=== PATIENT | male | born 1980 | race Caucasian/White ===

== ENCOUNTER 2017-04-18 10:23 | Emergency (ER) | payer SELFPAY ==
[2017-04-18] MEDS ORDERED: SULFAMETHOXAZOLE-TRIMETHOPRIM DS 800-160 MG TAB PO ONE (10:45)
[2017-04-18] MEDS ORDERED: LIDOCAINE HCL 2% 20 ML VIAL INFIL ONE (10:45)
--- NOTE | 2017-04-18 10:50 | PD ---
HPI Chief Complaint: Laceration/Skin Injury Time Seen by Provider: 10:44 Travel History International Travel<30 days: No Contact w/Intl Traveler<30days: No Traveled to known affect area: No History of Present Illness HPI 36-year-old male with history of IV drug use presents to the emergency room for evaluation of her right antecubital abscess that started last night. States when he woke up this morning had significantly grown in size. Patient is concerned he may have gotten a condom stuck under the skin. He has used IV drugs 14 times in the past couple days. He is currently homeless but a skilled nursing house that he was kicked out of offered to bring him to rehabilitation after he is finished with this visit. He denies fever, chills, nausea, vomiting. PFSH Social History Tobacco Use: Yes Allergies-Medications (Allergen,Severity, Reaction): Coded Allergies: Penicillins (Verified Allergy, Severe, 04/18/17) Review of Systems Except as stated in HPI: all other systems reviewed are Neg Physical Exam Narrative GENERAL: Well-nourished, well-developed male in no acute distress. Afebrile. Ambulatory. SKIN: Focused skin assessment warm/dry. There is an indurated area in the right antecubital space which measures about 2 cm in diameter. It is fluctuant but there is no pointing or drainage. There is a zone of inflammation around it but no lymphangitis. HEAD: Normocephalic. EYES: No scleral icterus. No injection or drainage. NECK: Supple, trachea midline. No JVD or lymphadenopathy. CARDIOVASCULAR: Regular rate and rhythm without murmurs, gallops, or rubs. RESPIRATORY: Breath sounds equal bilaterally. No accessory muscle use. MUSCULOSKELETAL: No cyanosis, or edema. Data Data Orders Orders Sulfamet-Trimeth Ds 800-160 Mg (Bactrim (04/18/17 10:45) Lidocaine 2% Inj (Xylocaine 2% Inj) (04/18/17 10:45) [facility] Medical Decision Making Medical Screen Exam Complete: Yes Emergency Medical Condition: Yes Medical Record Reviewed: Yes Differential Diagnosis Abscess, folliculitis, cellulitis Narrative Course 36-year-old male with history of IV drug use presents to the emergency room for evaluation of an antecubital abscess on his right arm that started last night. Patient is afebrile and well-appearing in the emergency room. There is a 2 cm abscess to the right antecubital space without significant surrounding erythema. No surrounding edema. No lymphangitis. Abscess was drained, see procedure note for details. Given first dose of Bactrim in ED. Patient discharged with prescription for Bactrim and told to follow up with a primary care physician or return for worsening symptoms. Procedures Procedure Narrative INCISION AND DRAINAGE OF ABSCESS: The area was prepped and was sterilely draped. A subcutaneous wheal of 2% lidocaine with a total number 1 mL was used to anesthetize the area properly. A number 11 scalpel was used to make a 0.5 cm incision across the area of the abscess. The abscess was drained, complex loculations were broken down, and irrigated with normal saline. Sterile dressing applied. Diagnosis Primary Impression: Abscess of antecubital fossa Referrals: Primary Care Physician Additional Instructions: Rest and drink plenty of fluids. Take Bactrim as directed, until gone. Return to emergency room for worsening symptoms, as discussed. Med/Other Pt SpecificInfo: Prescription(s) given Disposition: 01 DISCHARGE HOME Condition: Stable Reina Fabian Apr 18, 2017 10:50
[2017-04-18] MEDS ORDERED: BACT800T5 PO (11:08)
== END 2017-04-18 11:13 | disposition home or self-care (01) ==
LOC: NEPK 10:23
DX: L02.413 Cutaneous abscess of right upper limb (principal); F19.10 Other psychoactive substance abuse, uncomplicated; Z59.0 Homelessness; Z88.0 Allergy status to penicillin; Z72.0 Tobacco use
CPT/HCPCS: 10060

== ENCOUNTER 2017-04-30 18:51 | Emergency (ER) | payer OTHER ==
[~2017-04-30] VITALS: Ht 182.9 cm; Wt 75.0 kg
[~2017-04-30 18:51] MED LIST: BACT800T5 PO
[2017-04-30 18:57] VITALS: BP 157/78; PULSE 79; RESP 18; TEMP 98.1; O2SAT 100
[2017-04-30] MEDS ORDERED: NALOXONE HCL 0.4 MG/ML AMP ONE (19:12)
[2017-04-30] MEDS ORDERED: LORazepam 2 MG/ML VIAL IV PUSH ONE (19:15)
[2017-04-30] MEDS ORDERED: NALOXONE HCL 0.4 MG/ML AMP IV PUSH ONE (19:15)
--- NOTE | 2017-04-30 19:16 | PD ---
Physical Exam Narrative General: The patient is a well-developed well-nourished male with placed in restraints prior to my arrival in the room. The patient with apparently agitated in somewhat combative, therefore the patient has placed in restraints for his in the staff safety.. Head and Neck exam: Head is normocephalic atraumatic. Eyes: EOMI, pupils are equal round and reactive to light. Nose: Midline septum with pink mucous membranes Mouth: Dentition unremarkable. Moist mucus membranes. Posterior oropharynx is not erythematous. No tonsillar hypertrophy. Uvula midline. Airway patent. Neck: No palpable lymphadenopathy. No nuchal rigidity. No thyromegaly. Cardiovascular: Regular rate and rhythm without murmurs, gallops, or rubs. Lungs: Clear to auscultation bilaterally. No wheezes, rhonchi, or rales. Abdomen: Soft, without tenderness to palpation in all 4 quadrants of the abdomen. No guarding, rebound, or rigidity. Normal bowel sounds are audible. No tenderness on palpation at McBurney's point Extremities: No clubbing or cyanosis. The patient has trace to 1+ edema of the right leg compared to the left. He reports that he has had edema in that leg since he was [facility]. He denies any injuries. 2+ pulses in all 4 extremities. The patient reports that he does have a history of IV drug use. Back: No spinous process tenderness to palpation. No costovertebral angle tenderness to palpation. Neurologic Exam: Cranial nerves 2-12 were intact on exam. Strength is 5/5 in all 4 extremities. No sensory deficits noted. Skin Exam: No rash noted. Intact skin that is warm and dry. Data Data Last Documented VS Vital Signs Date Time Temp Pulse Resp B/P (MAP) Pulse Ox O2 Delivery O2 Flow Rate FiO2 05/01/17 08:21 05/01/17 06:43 18 05/01/17 02:32 Room Air 04/30/17 22:35 98 98 04/30/17 19:21 98.0 15.00 Orders Orders Complete Blood Count With Diff (04/30/17 19:01) Comprehensive Metabolic Panel (04/30/17 19:01) Electrocardiogram (04/30/17 19:) Drug Screen, Random Urine (04/30/17 19:) Alcohol (Ethanol) (04/30/17 19:01) Salicylates (Aspirin) (04/30/17 19:01) Tylenol (Acetaminophen) (04/30/17 19:01) ^ Sitter (04/30/17 19:03) Lorazepam Inj (Ativan Inj) (04/30/17 19:15) Naloxone Inj (Narcan Inj) (04/30/17 19:12) Naloxone Inj (Narcan Inj) (04/30/17 19:15) Us Leg Venous Doppler (04/30/17 ) Clindamycin 600 Mg/Ns Premix (Cleocin 60 (04/30/17 22:00) Ed Discharge Order (05/01/17 07:50) Labs Laboratory Tests Test 04/30/17 19:15 04/30/17 20:10 04/30/17 21:50 White Blood Count 13.0 TH/MM3 Red Blood Count 4.25 MIL/MM3 Hemoglobin 13.8 GM/DL Hematocrit 39.0 % Mean Corpuscular Volume 91.8 FL Mean Corpuscular Hemoglobin 32.5 PG Mean Corpuscular Hemoglobin Concent 35.5 % Red Cell Distribution Width 14.4 % Platelet Count 291 TH/MM3 Mean Platelet Volume 7.6 FL Neutrophils (%) (Auto) 71.0 % Lymphocytes (%) (Auto) 14.4 % Monocytes (%) (Auto) 13.1 % Eosinophils (%) (Auto) 1.1 % Basophils (%) (Auto) 0.4 % Neutrophils # (Auto) 9.3 TH/MM3 Lymphocytes # (Auto) 1.9 TH/MM3 Monocytes # (Auto) 1.7 TH/MM3 Eosinophils # (Auto) 0.1 TH/MM3 Basophils # (Auto) 0.0 TH/MM3 CBC Comment AUTO DIFF Differential Total Cells Counted 100 Neutrophils % (Manual) 77 % Band Neutrophils % 5 % Lymphocytes % 9 % Monocytes % 8 % Eosinophils % 1 % Neutrophils # (Manual) 10.7 TH/MM3 Differential Comment FINAL DIFF MANUAL Toxic Granulation 1+ Toxic Vacuolation PRESENT Platelet Estimate NORMAL Platelet Morphology Comment NORMAL Red Cell Morphology Comment NORMAL Blood Urea Nitrogen 9 MG/DL Creatinine 0.75 MG/DL Random Glucose 81 MG/DL Total Protein 6.9 GM/DL Albumin 3.4 GM/DL Calcium Level 7.9 MG/DL Alkaline Phosphatase 84 U/L Aspartate Amino Transf (AST/SGOT) 139 U/L Alanine Aminotransferase (ALT/SGPT) 208 U/L Total Bilirubin 0.5 MG/DL Sodium Level 134 MEQ/L Potassium Level 3.3 MEQ/L Chloride Level 100 MEQ/L Carbon Dioxide Level 23.1 MEQ/L Anion Gap 11 MEQ/L Estimat Glomerular Filtration Rate 117 ML/MIN Salicylates Level 3.0 MG/DL Acetaminophen Level LESS THAN 2.0 MCG/ML Ethyl Alcohol Level 134 MG/DL Urine Opiates Screen NEG Urine Barbiturates Screen NEG Urine Amphetamines Screen POS Urine Benzodiazepines Screen NEG Urine Cocaine Screen POS Urine Cannabinoids Screen NEG MDM Medical Record Reviewed: Yes Supervised Visit with JIMBO: Yes Interpretation(s) Last Impressions Lower Extremity Ultrasound 04/30/17 0000 Signed Impressions: Service Date/Time: Sunday, April 30, 2017 19:21 - CONCLUSION: Normal examination. Barrera Millan Jr., MD Narrative Course I, Dr. Gavin, have reviewed the advance practice practitioner's documentation and am in agreement, met with the patient face to face, made the diagnosis, and the medical decision making was done by me. The patient was initially evaluated by Brandon. Please see their complete history and physical. *My assessment and Findings: The patient presents with a history of arriving in the emergency department under a Muro act due to acute agitation reported history of IV drug use During the course of the patient's emergency department visit, the patient's history, examination, and differential diagnosis were reviewed with the patient. The patient was placed on a surveillance system monitor with oximetry and frequent blood pressure monitoring. The patient had IV access obtained and blood work sent for analysis. Shortly after the patient arrived the patient became more somnolent he had O2 saturations began to drop. The patient with given Narcan 0.4 mg IV. After 0.4 of Narcan the patient became more awake in alert. The patient reports that he would told that he weighs using mildly prior to arrival. He freely admits that he uses IV drugs whenever he can. The patient' s Muro as reviewed. According to the record the patient has expressed suicidal ideations to others at the police talk to when they responded to the scene. The patients laboratory studies were reviewed and remarkable for CBC as remarkable for a white count of 13, hemoglobin 13.8, platelets 291 with 71 neutrophils. CMP as remarkable for sodium of 134, potassium 3.3, AST 139, ALT 208, alcohol level 134, urine drug screen positive for amphetamines, cocaine. Radiology studies were reviewed and remarkable for ultrasound of the patient's lower extremity shows no evidence of DVT. The patient has observed in the emergency department for any further decline in his mentation or oxygen saturation. The patient remained awake or easily arousable during the course of his observation for hours after his initial Narcan administration. The patient has been medically cleared for evaluation by the psychiatric screener and psychiatrist under a Muro act. Diagnosis Primary Impression: Polysubstance abuse Additional Impression: Suicidal ideation Scripts Sulfamethoxazole-Trimethoprim (Bactrim DS) 800-160 Mg Tab 1 TAB PO BID for Infection for 14 Days, #28 TAB 0 Refills Prov: Cheli Gavin MD 04/30/17 Cheli Gavin MD Apr 30, 2017 19:16
[2017-04-30 19:21] VITALS: BP 131/62; PULSE 75; RESP 20; TEMP 98; O2SAT 100
[2017-04-30 19:45] LABS: AUTOMATED NEUTROPHIL # 9.3 TH/MM3 (1.8-7.7); BASOPHIL % 0.4 % (0.0-2.0); EOSINOPHIL # 0.1 TH/MM3 (0-0.4); EOSINOPHIL % 1.1 % (0.0-4.0); HEMOGLOBIN 13.8 GM/DL (13.0-17.0); LYMPH % 14.4 % (9.0-44.0); LYMPHOCYTE # 1.9 TH/MM3 (1.0-4.8); MEAN CELL VOLUME 91.8 FL (80.0-100.0); MEAN CORPUSCULAR HEMOGLOBIN 32.5 PG (27.0-34.0); MEAN CORPUSCULAR HGB CONC 35.5 % (32.0-36.0); MEAN PLATELET VOLUME 7.6 FL (7.0-11.0); MONO % 13.1 % (0.0-8.0); MONOCYTE # 1.7 TH/MM3 (0-0.9); PLATELET COUNT 291 TH/MM3 (150-450); RED BLOOD COUNT 4.25 MIL/MM3 (4.50-5.90); RED CELL DISTRIBUTION WIDTH 14.4 % (11.6-17.2)
--- NOTE | 2017-04-30 19:56 | RADRPT ---
EXAM DATE/TIME: 04/30/2017 19:21 [place] COMPARISON: No previous studies available for comparison. INDICATIONS : Right leg swelling. MEDICAL HISTORY : None. SURGICAL HISTORY : None. ENCOUNTER: Initial ACUITY: 1 day PAIN SCORE: 2/10 LOCATION: Right leg. TECHNIQUE: Venous ultrasound of the leg was performed from the inguinal ligament to the proximal calf. Real-nabeel e, color Doppler and spectral tracing, compression and augmentation techniques were used. FINDINGS: There is normal compressibility of the deep venous system from the inguinal region to the proximal ca lf. No echogenic clot is seen in the lumen of the common femoral, femoral, popliteal, and posterior tibial veins. There is a normal response of the venous system to proximal and distal augmentation an d respiration. CONCLUSION: Normal examination. Barrera Millan Jr., MD on April 30, 2017 at 19:52 Board Certified Radiologist. This report was verified electronically.
[2017-04-30 20:17] LABS: BANDS 5 % (0-6); LYMPHOCYTES 9 % (9-44); MONOCYTES 8 % (0-8); NEUTROPHIL # MANUAL DIFF 10.7 TH/MM3 (1.8-7.7); POLYS (SEG NEUTROPHILS) 77 % (16-70)
[2017-04-30 20:19] LABS: TOXIC GRANULATION 1+ (NORMAL)
[2017-04-30 20:20] LABS: TOXIC VACUOLATION PRESENT (NONE SEEN)
--- NOTE | 2017-04-30 20:27 | PD ---
HPI Chief Complaint: Psychiatric Symptoms Time Seen by Provider: 19:01 Travel History International Travel<30 days: No Contact w/Intl Traveler<30days: No Traveled to known affect area: No History of Present Illness HPI 36-year-old male that presents to the ED for evaluation of Muro act an possible overdose. Patient has a chronic history of IV drug abuse in voices that he has been using IV drugs for some time. Per patient he possibly injected multiple he is not sure. His injected multiple drugs in the past. Per patient his homeless. He denies any injuries or attempt to kill himself. Per patient it was not purely recreational. Apparently when she wants found by ambulance as well as police he was not very agitated in thought to be a trip to himself so he was not very corrected for his safety brought here. Patient wants put on restraints but has been cooperative since. She does appear to get aggressive on occasion. On my initial evaluation he will somewhat somnolent but arousable. He answers some questions properly. She was not given any medications by ambulance. He has an allergy to penicillins. He denies any other medical issues at this time. Denies homicidal or suicidal ideation. [facility] Social History Alcohol Use: Yes Tobacco Use: Yes Substance Use: Yes (andrzej) Allergies-Medications (Allergen,Severity, Reaction): Coded Allergies: Penicillins (Verified Allergy, Severe, 04/18/17) Reported Meds & Prescriptions Reported Meds & Active Scripts Active Bactrim DS (Sulfamethoxazole-Trimethoprim) 800-160 Mg Tab 1 Tab PO BID 14 Days Review of Systems Except as stated in HPI: all other systems reviewed are Neg Physical Exam Narrative GENERAL: SKIN: Warm and dry. HEAD: Atraumatic. Normocephalic. EYES: Pupils equal and round 2 mms pinpoint. No scleral icterus. No injection or drainage. ENT: No nasal bleeding or discharge. Mucous membranes pink and moist. Tongue his midline. No uvula deviation. NECK: Trachea midline. No JVD. CARDIOVASCULAR: Regular rate and rhythm. No murmurs, S3, S4. RESPIRATORY: No accessory muscle use. Clear to auscultation. Breath sounds equal bilaterally. GASTROINTESTINAL: Abdomen soft, non-tender, nondistended. Hepatic and splenic margins not palpable. MUSCULOSKELETAL: Extremities without clubbing, cyanosis, or edema. No obvious deformities. Full range of motion of the upper lower extremities bilaterally. Patient does have erythema swelling noted on the right leg compared to the left. 2+ pulses bilaterally. Sensation intact bilaterally. NEUROLOGICAL: Awake and alert. No obvious cranial nerve deficits. Motor grossly within normal limits. Five out of 5 muscle strength in the arms and legs. Normal speech. PSYCHIATRIC: Appropriate mood and affect; insight and judgment normal. Data Data Last Documented VS Vital Signs Date Time Temp Pulse Resp B/P (MAP) Pulse Ox O2 Delivery O2 Flow Rate FiO2 04/30/17 19:21 98.0 75 20 131/62 (85) 100 Non-Rebreather 15.00 Orders Orders Complete Blood Count With Diff (04/30/17 19:01) Comprehensive Metabolic Panel (04/30/17 19:01) Electrocardiogram (04/30/17 19:01) Psych Screen (04/30/17 19:01) Drug Screen, Random Urine (04/30/17 19:01) Alcohol (Ethanol) (04/30/17 19:01) Salicylates (Aspirin) (04/30/17 19:01) Tylenol (Acetaminophen) (04/30/17 19:01) ^ Sitter (04/30/17 19:03) Lorazepam Inj (Ativan Inj) (04/30/17 19:15) Naloxone Inj (Narcan Inj) (04/30/17 19:12) Naloxone Inj (Narcan Inj) (04/30/17 19:15) Us Leg Venous Doppler (04/30/17 ) Clindamycin 600 Mg/Ns Premix (Cleocin 60 (04/30/17 22:00) Labs Laboratory Tests Test 04/30/17 19:15 04/30/17 20:10 White Blood Count 13.0 TH/MM3 Red Blood Count 4.25 MIL/MM3 Hemoglobin 13.8 GM/DL Hematocrit 39.0 % Mean Corpuscular Volume 91.8 FL Mean Corpuscular Hemoglobin 32.5 PG Mean Corpuscular Hemoglobin Concent 35.5 % Red Cell Distribution Width 14.4 % Platelet Count 291 TH/MM3 Mean Platelet Volume 7.6 FL Neutrophils (%) (Auto) 71.0 % Lymphocytes (%) (Auto) 14.4 % Monocytes (%) (Auto) 13.1 % Eosinophils (%) (Auto) 1.1 % Basophils (%) (Auto) 0.4 % Neutrophils # (Auto) 9.3 TH/MM3 Lymphocytes # (Auto) 1.9 TH/MM3 Monocytes # (Auto) 1.7 TH/MM3 Eosinophils # (Auto) 0.1 TH/MM3 Basophils # (Auto) 0.0 TH/MM3 CBC Comment AUTO DIFF Differential Total Cells Counted 100 Neutrophils % (Manual) 77 % Band Neutrophils % 5 % Lymphocytes % 9 % Monocytes % 8 % Eosinophils % 1 % Neutrophils # (Manual) 10.7 TH/MM3 Differential Comment FINAL DIFF MANUAL Toxic Granulation 1+ Toxic Vacuolation PRESENT Platelet Estimate NORMAL Platelet Morphology Comment NORMAL Red Cell Morphology Comment NORMAL Blood Urea Nitrogen 9 MG/DL Creatinine 0.75 MG/DL Random Glucose 81 MG/DL Total Protein 6.9 GM/DL Albumin 3.4 GM/DL Calcium Level 7.9 MG/DL Alkaline Phosphatase 84 U/L Aspartate Amino Transf (AST/SGOT) 139 U/L Alanine Aminotransferase (ALT/SGPT) 208 U/L Total Bilirubin 0.5 MG/DL Sodium Level 134 MEQ/L Potassium Level 3.3 MEQ/L Chloride Level 100 MEQ/L Carbon Dioxide Level 23.1 MEQ/L Anion Gap 11 MEQ/L Estimat Glomerular Filtration Rate 117 ML/MIN Salicylates Level 3.0 MG/DL Acetaminophen Level LESS THAN 2.0 MCG/ML Ethyl Alcohol Level 134 MG/DL MDM Medical Decision Making Medical Screen Exam Complete: Yes Emergency Medical Condition: Yes Medical Record Reviewed: Yes Interpretation(s) Last Impressions Lower Extremity Ultrasound 04/30/17 0000 Signed Impressions: Service Date/Time: Sunday, April 30, 2017 19:21 - CONCLUSION: Normal examination. Barrera Millan Jr., MD Differential Diagnosis Overdose versus suicidal attempt versus drug abuse versus depression versus polysubstance abuse versus cellulitis versus altered mental status versus acute intoxication Narrative Course 36-year-old male presents to the ED for evaluation of overdose on Muro act. Patient with peripheral examinable found to have signs in symptoms consistent with overdose on Muro act. Patient denies any suicidal ideation. Patient has been corrected for his own safety. Laps were ordered. My attending Dr. Garcia evaluated the patient as initially patient was a little somnolent nurse must concern S patient's O2 status he went down. Patient will plan on repairing given Narcan with good results. Patient became more awake in more cooperative. Patient still in restraints as he does appear to wean in an out of aggression. Patient wants found to have some what appears to be cellulitis to the right leg. Ultrasound as recommended by my attending. labs and imaging unremarcable other than for slight leukocytosis, Patient more alert but still intoxicated and somewhat aggressive. Will allow his intoxication to clear. patient was medically cleared. Ok to be seen by psych. Mental health screening was discussed with the patient. Patient was started on clindamycin and bactrim to cover for right leg cellulitis Diagnosis Primary Impression: Polysubstance abuse Additional Impression: Cellulitis Qualified Codes: L03.115 - Cellulitis of right lower limb Scripts Sulfamethoxazole-Trimethoprim (Bactrim DS) 800-160 Mg Tab 1 TAB PO BID for Infection for 14 Days, #28 TAB 0 Refills Prov: Cheli Gavin MD 04/30/17 Gaurang Kimball Apr 30, 2017 20:27
[2017-04-30] MEDS ORDERED: BACT800T5 PO (21:54)
[2017-04-30 21:55] LABS: ALBUMIN 3.4 GM/DL (3.4-5.0); ALKALINE PHOSPHATASE 84 U/L (45-117); ALT (GPT) 208 U/L (12-78); AST (GOT) 139 U/L (15-37); BICARBONATE 23.1 MEQ/L (21.0-32.0); BLOOD UREA NITROGEN 9 MG/DL (7-18); CALCIUM 7.9 MG/DL (8.5-10.1); CHLORIDE 100 MEQ/L (98-107); CREATININE 0.75 MG/DL (0.60-1.30); GLOMERULAR FILTRATION RATE 117 ML/MIN (>89); GLUCOSE,RANDOM 81 MG/DL (74-106); SODIUM (NA) 134 MEQ/L (136-145); TOTAL BILIRUBIN ADULT 0.5 MG/DL (0.2-1.0); TOTAL PROTEIN 6.9 GM/DL (6.4-8.2)
[2017-04-30 22:00] LABS: ACETAMINOPHEN LESS THAN 2.0 MCG/ML (10.0-30.0)
[2017-04-30] MEDS ORDERED: CLINDAMYCIN 600 MG/NS PREMIX 50 ML IV ONE (22:00)
[2017-04-30 22:35] VITALS: BP 125/67; PULSE 98; RESP 20; O2SAT 98
--- NOTE | 2017-04-30 23:26 | PD ---
History of Present Illness Chief Complaint: Psychiatric Symptoms Time Seen by Provider: 10:50 Travel History International Travel<30 Days: No Contact w/Intl Traveler<30days: No Known affected area: No Legal Status Legal Status: Muro Act Muro Act Signed By: Aga Griffin History of Present Illness: History of Present Illness 36-year-old male with history of substance abuse that presents to the ED under a Muro act Muro act initiated by law enforcement for possible overdose. The Muro act report states deputy Ray determined there was substantial likelihood that without proper care treatment Eugenia is likely to cost seriously body harm to himself and other. Deputies were informed Carole stated he did not want to live anymore. Deputies were advised Carole was found passed out from drinking in the middle of the road. ED documentation is reviewed. " The patient reported that he has a history of IV drug abuse and that he possibly injected multiple substances. Per patient he is homeless. He denies any injuries or attempt to kill himself. Denies homicidal or suicidal ideation." Electronic medical record is reviewed. No previous contact with [facility] psychiatry. The patient is seen in main ED. He is asleep but is arousable. He answers questions appropriately and provides information. He is alert, oriented. His speech is of low tone but it's clear and logical. He denies that the overdose was with intent to kill himself. He admits to use of intravenous drugs including heroin, cocaine, and Andrzej. There is no evidence of any psychosis, josiane or hypomania. He denies symptoms of depression. Patient tells me that he has had a recent relapse and has begun to use alcohol as well as other substances. Psychiatric History Psychiatric History Hx Psychiatric Treatment: Denies any current treatment. Does report he received psychiatric treatment while in assisted. Diagnosis is unknown History of Inpatient Treatment: No Guns or firearms in home: No Social History Patient lives with his mother. Works as a day sanitation laborer in construction. Hx Alcohol Use: Yes Hx Tobacco Use: Yes Hx Substance Use: Yes (andrzej) Substance Use Type: Alcohol, Amphetamines-Stimulants, Heroin, Cocaine, Synth Opiates-Pain Pills Hx of Substance Use Treatment: Yes (as a juvenile) Family Psychiatric History None reported Allergies-Medications (Allergen,Severity, Reaction): Coded Allergies: Penicillins (Verified Allergy, Severe, 04/18/17) Reported Meds & Prescriptions Reported Meds & Active Scripts Active Bactrim DS (Sulfamethoxazole-Trimethoprim) 800-160 Mg Tab 1 Tab PO BID 14 Days Review of Systems Except as stated in HPI: all other systems reviewed are Neg Mental Status Examination Appearance: Disheveled Consciousness: Alert Orientation: x4 Motor Activity: Normal gait Speech: Slow Language: Adequate Fund of Knowledge: Adequate Attention and Concentration: Adequate Memory: Unremarkable Mood: Appropriate Affect: Appropriate Thought Process & Associations: Intact, Logical, Goal directed Thought Content: Appropriate Hallucination Type: None Delusion Type: None Suicidal Ideation: No Suicidal Plan: No Suicidal Intention: No Homicidal Ideation: No Homicidal Plan: No Homicidal Intention: No Insight: Poor Judgment: Adequate MDM Medical Decision Making Medical Record Reviewed: Yes Assessment/Plan 36-year-old single male with history of substance abuse who presents under Muro act initiated by law enforcement after he was found passed out In the middle of the road. The Muro act alleges that the patient stated to the deputies that he did not want to live anymore. But the patient admits to having used several IV substances including heroin, cocaine, Andrzej as well as having had alcohol. He denies that this was an intentional overdose. He denies any suicidal or homicidal ideation. There is no psychosis and no josiane. The patient with no current or significant psychiatric treatment history. The patient does not meet criteria for Muro act at this time. The Muro act is lifted. He is psychiatrically clear for discharge but will be allowed to sleep it off until he is ready and safe for discharge. Orders Orders Complete Blood Count With Diff (04/30/17 19:) Comprehensive Metabolic Panel (04/30/17 19:) Electrocardiogram (04/30/17 19:) Psych Screen (04/30/17 19:) Drug Screen, Random Urine (04/30/17 19:) Alcohol (Ethanol) (04/30/17 19:) Salicylates (Aspirin) (04/30/17 19:) Tylenol (Acetaminophen) (04/30/17 19:01) ^ Sitter (04/30/17 19:03) Lorazepam Inj (Ativan Inj) (04/30/17 19:15) Naloxone Inj (Narcan Inj) (04/30/17 19:12) Naloxone Inj (Narcan Inj) (04/30/17 19:15) Us Leg Venous Doppler (04/30/17 ) Clindamycin 600 Mg/Ns Premix (Cleocin 60 (04/30/17 22:00) Results Vital Signs Date Time Temp Pulse Resp B/P (MAP) Pulse Ox O2 Delivery O2 Flow Rate FiO2 04/30/17 22:35 98 20 125/67 (86) 98 04/30/17 19:21 98.0 75 20 131/62 (85) 100 Non-Rebreather 15.00 04/30/17 18:57 98.1 79 18 157/78 (104) 100 Laboratory Tests Test 04/30/17 19:15 04/30/17 20:10 04/30/17 21:50 White Blood Count 13.0 Red Blood Count 4.25 Hemoglobin 13.8 Hematocrit 39.0 Mean Corpuscular Volume 91.8 Mean Corpuscular Hemoglobin 32.5 Mean Corpuscular Hemoglobin Concent 35.5 Red Cell Distribution Width 14.4 Platelet Count 291 Mean Platelet Volume 7.6 Neutrophils (%) (Auto) 71.0 Lymphocytes (%) (Auto) 14.4 Monocytes (%) (Auto) 13.1 Eosinophils (%) (Auto) 1.1 Basophils (%) (Auto) 0.4 Neutrophils # (Auto) 9.3 Lymphocytes # (Auto) 1.9 Monocytes # (Auto) 1.7 Eosinophils # (Auto) 0.1 Basophils # (Auto) 0.0 CBC Comment AUTO DIFF Differential Total Cells Counted 100 Neutrophils % (Manual) 77 Band Neutrophils % 5 Lymphocytes % 9 Monocytes % 8 Eosinophils % 1 Neutrophils # (Manual) 10.7 Differential Comment FINAL DIFF MANUAL Toxic Granulation 1+ Toxic Vacuolation PRESENT Platelet Estimate NORMAL Platelet Morphology Comment NORMAL Red Cell Morphology Comment NORMAL Blood Urea Nitrogen 9 Creatinine 0.75 Random Glucose 81 Total Protein 6.9 Albumin 3.4 Calcium Level 7.9 Alkaline Phosphatase 84 Aspartate Amino Transf (AST/SGOT) 139 Alanine Aminotransferase (ALT/SGPT) 208 Total Bilirubin 0.5 Sodium Level 134 Potassium Level 3.3 Chloride Level 100 Carbon Dioxide Level 23.1 Anion Gap 11 Estimat Glomerular Filtration Rate 117 Salicylates Level 3.0 Acetaminophen Level LESS THAN 2.0 Ethyl Alcohol Level 134 Urine Opiates Screen NEG Urine Barbiturates Screen NEG Urine Amphetamines Screen POS Urine Benzodiazepines Screen NEG Urine Cocaine Screen POS Urine Cannabinoids Screen NEG Diagnosis Primary Impression: Polysubstance abuse Additional Impression: Cellulitis Psychiatrically Cleared: Yes Prescriptions Sulfamethoxazole-Trimethoprim (Bactrim DS) 800-160 Mg Tab 1 TAB PO BID for Infection for 14 Days, #28 TAB 0 Refills Prov: Cheli Gavin MD 04/30/17 Disposition: 01 DISCHARGE HOME Condition: Stable Problem Qualifiers Additional Impression: Cellulitis Qualified Codes: L03.115 - Cellulitis of right lower limb Ciera Hester [facility] Apr 30, 2017 23:26
[2017-05-01 02:32] VITALS: RESP 18
[2017-05-01 06:43] VITALS: RESP 18
--- NOTE | 2017-05-01 07:50 | PD ---
Physical Exam Date Seen by Provider: May 01, 2017 Time Seen by Provider: 07:49 Narrative 36-year-old male previously medically cleared for psychiatric evaluation has been seen by psychiatric services and felt to be stable for psychiatric discharge. She remains medically stable for discharge at this time. Patient will follow-up as recommended by psychiatric services. Data Data Last Documented VS Vital Signs Date Time Temp Pulse Resp B/P (MAP) Pulse Ox O2 Delivery O2 Flow Rate FiO2 05/01/17 06:43 18 05/01/17 02:32 Room Air 04/30/17 22:35 98 98 04/30/17 19:21 98.0 15.00 Orders Orders Complete Blood Count With Diff (04/30/17 19:01) Comprehensive Metabolic Panel (04/30/17 19:01) Electrocardiogram (04/30/17 19:01) Drug Screen, Random Urine (04/30/17 19:01) Alcohol (Ethanol) (04/30/17 19:01) Salicylates (Aspirin) (04/30/17 19:01) Tylenol (Acetaminophen) (04/30/17 19:01) ^ Sitter (04/30/17 19:03) Lorazepam Inj (Ativan Inj) (04/30/17 19:15) Naloxone Inj (Narcan Inj) (04/30/17 19:12) Naloxone Inj (Narcan Inj) (04/30/17 19:15) Us Leg Venous Doppler (04/30/17 ) Clindamycin 600 Mg/Ns Premix (Cleocin 60 (04/30/17 22:00) Diet Regular Basic (05/01/17 Breakfast) Labs Laboratory Tests Test 04/30/17 19:15 04/30/17 20:10 04/30/17 21:50 White Blood Count 13.0 TH/MM3 Red Blood Count 4.25 MIL/MM3 Hemoglobin 13.8 GM/DL Hematocrit 39.0 % Mean Corpuscular Volume 91.8 FL Mean Corpuscular Hemoglobin 32.5 PG Mean Corpuscular Hemoglobin Concent 35.5 % Red Cell Distribution Width 14.4 % Platelet Count 291 TH/MM3 Mean Platelet Volume 7.6 FL Neutrophils (%) (Auto) 71.0 % Lymphocytes (%) (Auto) 14.4 % Monocytes (%) (Auto) 13.1 % Eosinophils (%) (Auto) 1.1 % Basophils (%) (Auto) 0.4 % Neutrophils # (Auto) 9.3 TH/MM3 Lymphocytes # (Auto) 1.9 TH/MM3 Monocytes # (Auto) 1.7 TH/MM3 Eosinophils # (Auto) 0.1 TH/MM3 Basophils # (Auto) 0.0 TH/MM3 CBC Comment AUTO DIFF Differential Total Cells Counted 100 Neutrophils % (Manual) 77 % Band Neutrophils % 5 % Lymphocytes % 9 % Monocytes % 8 % Eosinophils % 1 % Neutrophils # (Manual) 10.7 TH/MM3 Differential Comment FINAL DIFF MANUAL Toxic Granulation 1+ Toxic Vacuolation PRESENT Platelet Estimate NORMAL Platelet Morphology Comment NORMAL Red Cell Morphology Comment NORMAL Blood Urea Nitrogen 9 MG/DL Creatinine 0.75 MG/DL Random Glucose 81 MG/DL Total Protein 6.9 GM/DL Albumin 3.4 GM/DL Calcium Level 7.9 MG/DL Alkaline Phosphatase 84 U/L Aspartate Amino Transf (AST/SGOT) 139 U/L Alanine Aminotransferase (ALT/SGPT) 208 U/L Total Bilirubin 0.5 MG/DL Sodium Level 134 MEQ/L Potassium Level 3.3 MEQ/L Chloride Level 100 MEQ/L Carbon Dioxide Level 23.1 MEQ/L Anion Gap 11 MEQ/L Estimat Glomerular Filtration Rate 117 ML/MIN Salicylates Level 3.0 MG/DL Acetaminophen Level LESS THAN 2.0 MCG/ML Ethyl Alcohol Level 134 MG/DL Urine Opiates Screen NEG Urine Barbiturates Screen NEG Urine Amphetamines Screen POS Urine Benzodiazepines Screen NEG Urine Cocaine Screen POS Urine Cannabinoids Screen NEG MDM Medical Record Reviewed: Yes Supervised Visit with JIMBO: Yes Differential Diagnosis 36-year-old male previously medically cleared for psychiatric evaluation has been seen by psychiatric services and felt to be stable for psychiatric discharge. She remains medically stable for discharge at this time. Patient will follow-up as recommended by psychiatric services. Diagnosis Primary Impression: Polysubstance abuse Additional Impression: Cellulitis Qualified Codes: L03.115 - Cellulitis of right lower limb Patient Instructions: General Instructions Departure Forms: Tests/Procedures Additional Instruction: Contract for safety. Avoid alcohol. Follow-up with doctor. Return as needed. Scripts Sulfamethoxazole-Trimethoprim (Bactrim DS) 800-160 Mg Tab 1 TAB PO BID for Infection for 14 Days, #28 TAB 0 Refills Prov: Cheli Gavin MD 04/30/17 Disposition: 01 DISCHARGE HOME Condition: Stable Benji Galloway 17, 2018 07:50
--- NOTE | 2017-05-01 09:50 | EKG ---
Date Performed: 04/30/2017 Time Performed: 19:09:15 PTAGE: 36 years EKG: Sinus rhythm NONSPECIFIC ST & T-WAVE ABNORMALITY BORDERLINE ECG NO PREVIOUS TRACING DOCTOR: Cruz Vernon Interpretating Date/Time 05/01/2017 09:48:08
== END 2017-05-01 08:24 | disposition home or self-care (01) ==
LOC: NEPE 18:51 → NEPJ 05-01 08:24
DX: F19.10 Other psychoactive substance abuse, uncomplicated (principal); L03.115 Cellulitis of right lower limb; M79.89 Other specified soft tissue disorders; R94.31 Abnormal electrocardiogram [ECG] [EKG]; Z72.0 Tobacco use; Z59.0 Homelessness
CPT/HCPCS: 80053; 80307; 85007; 85027; 93005; 93971; 96374; 99285; J2310